=== PATIENT | female | born 2000 | race Hispanic/Latino ===

== ENCOUNTER 2020-03-07 14:54 | Outpatient (CLI) | payer OTHER, SELFPAY ==
--- NOTE | ~2020-03-07 | US_ITS ---
EXAMINATION: US renal BI DATE: 03/07/2020 15:49 INDICATION: Chronic urinary tract infection. Renal stones. TECHNIQUE: Multiple ultrasound grayscale images of the kidneys were obtained. COMPARISON: None. FINDINGS: The right kidney measures 9.8 x 5.2 x 3.6 cm. The left kidney measures 8.6 x 4.5 x 3.7 cm. The kidney s demonstrate normal echogenicity. There is no hydronephrosis in either kidney. No stones identified . The bladder is normal. IMPRESSION: 1. Normal kidneys without hydronephrosis. Reviewed, dictated and finalized at location B. RT CLERK
== END 2020-03-07 14:55 | disposition home or self-care (01) ==
PROVIDERS: PCP Family Medicine; Visit Provider Family Medicine
DX: N20.0 Calculus of kidney (principal)
CPT/HCPCS: 76775

== ENCOUNTER 2021-01-24 13:11 | Outpatient (CLI) | payer OTHER, SELFPAY ==
--- NOTE | ~2021-01-24 | US_ITS ---
US axilla BI 01/24/2021 14:07 Indication: Palpable axillary abnormalities Procedure: High-resolution ultrasound of the axilla bilaterally. Comparison: No prior studies for comparison. Findings: There are multiple bilateral axillary lymph nodes, largest in the right axilla measures 1 c m maximum dimension. There is a 9 mm hypoechoic mass with enhanced through transmission without ollie l fatty hilum. There is internal vascularity. Largest left axillary lymph node measures 1 cm with nor mal fatty hilum in each. Impression: 1: Oval hypoechoic 9 mm right axillary mass without associated fatty hilum, possibly pathologic lymph node. Multiple additional normal-appearing lymph nodes are present in both axilla. Is there a histor y of recent Covid vaccination? BI-RADS CATEGORY 3-PROBABLY BENIGN FINDING RECOMMENDATION: Recommend follow-up ultrasound in 2-3 months to assess for interval resolution. Reviewed, dictated and finalized at location A. Impression: 1: Oval hypoechoic 9 mm right axillary mass without associated fatty hilum, pos sibly pathologic lymph node. Multiple additional normal-appearing lymph nodes a re present in both axilla. Is there a history of recent Covid vaccination? BI-RADS CATEGORY 3-PROBABLY BENIGN FINDING RECOMMENDATION: Recommend follow-up ultrasound in 2-3 months to assess for inte rval resolution.
== END 2021-01-24 13:12 | disposition home or self-care (01) ==
LOC: ANHIMG 13:13
PROVIDERS: PCP Family Medicine; Visit Provider Family Medicine
DX: R22.2 Localized swelling, mass and lump, trunk (principal)
CPT/HCPCS: 76882